=== PATIENT | male | born 1995 | race Caucasian/White ===

== ENCOUNTER 2021-03-20 17:28 | Emergency (ER) | payer OTHER, SELFPAY ==
[2021-03-20 18:04] VITALS: BP 139/94; PULSE 86; RESP 16; TEMP 36.7; O2SAT 97; BMI 27.3
--- NOTE | 2021-03-20 18:21 | XRR_ITS ---
PROCEDURE INFORMATION: Exam: XR Left Wrist Exam date and time: 03/20/2021 6:21 PM Age: 25 years old Clinical indication: Pain; Wrist; Left; Additional info: Trauma TECHNIQUE: Imaging protocol: XR Left wrist. Views: 3 or more views. COMPARISON: No relevant prior studies available. FINDINGS: Bones/joints: There is an longitudinal interarticular hairline fracture of the distal radius. The carpal bones appear well aligned. Soft tissues: Unremarkable XR/XR wrist LT min 3V* [id number] IMPRESSION: 1. Interarticular fracture distal radius 2. Otherwise negative examination
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
[2021-03-20 19:07] VITALS: PULSE 100
[2021-03-20 21:15] VITALS: RESP 16; TEMP 36.7; O2SAT 97
--- NOTE | 2021-03-21 10:26 | DCPLANNER ---
water resource manager had message to schedule a follow up appointment for patient with ortho for a nondisplaced fracture. water resource manager called the ortho clinic, spoke with Amy, gave clinic patients information. water resource manager was told that patients information would be printed and reviewed. Clinic will call patient with appointment information.
--- NOTE | 2021-03-22 11:05 | DCPLANNER ---
Patient has a follow up appointment scheduled for Friday, March 26, 2021 at 8:[address] Christopher at [facility]. Clinic will call patient with appointment information.
--- NOTE | 2021-05-09 07:40 | DCPLANNER ---
Patient had a follow up appointment scheduled for 03.26.[address] Christopher at [facility] - patient did attend appointment.
== END 2021-03-20 21:15 | disposition home or self-care (01) ==
PROVIDERS: Emergency Provider Nurse Practitioner Family
DX: S52.572A Other intraarticular fracture of lower end of left radius, initial encounter for closed fracture (principal); V86.55XA Driver of 3- or 4- wheeled all-terrain vehicle (ATV) injured in nontraffic accident, initial encounter
CPT/HCPCS: 29125; 73110; 99282

== ENCOUNTER 2021-03-26 14:07 | Outpatient (CLI) | payer OTHER, SELFPAY | END 2021-03-26 14:08 | disposition home or self-care (01) | LOC: SPT 14:07 | PROVIDERS: Visit Provider Orthopaedic Surgery | DX: Z46.89 Encounter for fitting and adjustment of other specified devices (principal); S52.502D Unspecified fracture of the lower end of left radius, subsequent encounter for closed fracture with routine healing; X58.XXXD Exposure to other specified factors, subsequent encounter | CPT/HCPCS: 97760; L3982 ==

== ENCOUNTER → 2021-04-02 07:58 | Outpatient (BNVA) | payer OTHER, SELFPAY | PROVIDERS: Visit Provider Orthopaedic Surgery | DX: S52.502A Unspecified fracture of the lower end of left radius, initial encounter for closed fracture (principal); X58.XXXA Exposure to other specified factors, initial encounter | CPT/HCPCS: 73110 ==

== ENCOUNTER → 2021-04-23 08:45 | Outpatient (BNVA) | payer OTHER, SELFPAY | PROVIDERS: Visit Provider Orthopaedic Surgery | DX: S52.502A Unspecified fracture of the lower end of left radius, initial encounter for closed fracture (principal); X58.XXXA Exposure to other specified factors, initial encounter | CPT/HCPCS: 73110 ==

== ENCOUNTER 2025-08-13 10:35 | Emergency (ER) | payer BC, SELFPAY ==
[2025-08-13 11:01] VITALS: BP 126/88; PULSE 71; RESP 16; TEMP 36.4; O2SAT 99; BMI 33.2
--- NOTE | 2025-08-13 11:10 | XRR_ITS ---
PROCEDURE INFORMATION: Exam: XR Abdomen Exam date and time: 08/13/2025 11:12 AM Age: 30 years old Clinical indication: Abdominal pain; Flank; Left; Additional info: L flank pain TECHNIQUE: Imaging protocol: Radiologic exam of the abdomen. Views: Frontal supine view of the abdomen. 1 View. COMPARISON: No relevant prior studies available. FINDINGS: Gastrointestinal tract: Normal. No bowel dilation. Bones/joints: Unremarkable. XR/XR KUB portable [id number] IMPRESSION: No acute findings.
--- NOTE | 2025-08-13 11:11 | ED_ITS ---
HPI - Male Genitourinary 2 General: Chief complaint: Urogenital-Male Stated complaint: L side and back pain, trouble urinating, n/v Time Seen by Provider: 08/13/25 11:04 Source: patient Mode of arrival: ambulatory Limitations: no limitations History of Present Illness: 30-year-old male states has been having left flank pain since morning. States it is a sharp pain radiates to his testicles with some nausea vomiting. Patient states his pain currently 10 out of 10 has had a history of kidney stones states this feels same. Denies any worse or improving factors. Associated symptoms: Reports nausea and vomiting Related Data Previous Rx's ?Medication ?Instructions ?Recorded hydrocodone 5 mg-acetaminophen 325 1 tab PO Q6H PRN pa in #14 tabs 08/13/25 mg tablet ondansetron 4 mg disintegrating 4 mg PO Q6H PRN nausea and 08/13/25 tablet vomiting #14 tabs Allergies Allergy/AdvReac Type Severity Reaction Status Date / Time No Known Allergies Allergy Verified 05/21/21 08:06 Review of Systems 2 GI: Reports: nausea and vomiting : Reports: flank pain PFSH ED 2 PFSH: Social History Alcohol intake: never Substance/Drug Use: never Physical Exam 2 Const: COMMON NORMALS: no acute distress, patient oriented x3 and healthy appearing HENMT: COMMON NORMALS: normocephalic and atraumatic HEAD & SCALP: n ormocephalic and atraumatic Eye: COMMON NORMALS: Equal, round and reactive pupils present PUPIL: Yes Equal, round and reactive pupils present Neck/C-Spine: COMMON NORMALS: full ROM and supple Chest: COMMONS NORMALS: normal inspection of the chest Resp: COMMON NORMALS: normal respiratory effort Cardio: COMMON NORMALS: regular rate RATE: regular rate GI: COMMON NORMALS: Normal to inspection, nondistended, normoactive bowel sounds present, Soft to palpation, non-tender and no masses PALPATION: Yes Soft to palpation Extremity: COMMON NORMALS: normal to inspection and full ROM Neuro: COMMON NORMALS: patient oriented x3, moves all extremities and no focal motor deficits Psych: COMMON NORMALS: mental status grossly normal, Normal thought process present and cooperative THOUGHT PROCESS: Normal thought process present Skin: COMMON NORMALS: no rashes or lesions noted and no wounds GENERAL SKIN EXAM: no rashes or lesions noted Course 2 Vital Signs: Vital signs: Vital Signs Temperature 97.6 F 08/13/25 11:01 Pulse Rate 71 08/13/25 11:01 Respiratory Rate 16 08/13/25 11:01 Blood Pressure 126/88 08/13/25 11:01 Pulse Oximetry 99 08/13/25 11:01 Oxygen Delivery Me thod Room Air 08/13/25 11:01 MDM - Male Medical Decision Making Patient presents for flank pain differential include appendicitis and UTI. Abdominal exam here is benign with no tenderness no signs of appendicitis urinalysis showed no signs of UTI. White count electrolytes were normal. Does have hematuria symptoms are consistent with a kidney stone. He said kidney stones in the past does not require CT scan at this time. KUB showed no large stones. His pain is resolved here with Toradol and morphine. Will discharge him with hydrocodone and Zofran and a urine strainer and he is to follow-up. He understands agrees to plan Lab Data 08/13/25 11:55 08/13/25 11:55 Radiology Impressions KUB X-Ray 08/13/25 11:10 IMPRESSION: No acute findings. Laboratory Results WBC 9.10 10^3/uL (3.29-11.43) 08/13/25 11:55 RBC 6.01 10^6/uL (3.85-5.65) H 08/13/25 11:55 Hgb 16.70 g/dL (11.27-16.99) 08/13/25 11:55 Hct 50.7 % (37-53) 08/13/25 11:55 MCV 84.4 fl (82-101) 08/13/25 11:55 MCH 27.8 pg (27-33) 08/13/25 11:55 MCHC 32.9 g/dL (30-55) 08/13/25 11:55 RDW 12.8 % (12.1-15.1) 08/13/25 11:55 Plt Count 416 10^3/cmm (157-399) H 08/13/25 11:55 MPV 9.3 fL (7.4-10.4) 08/13/25 11:55 Neut % (Auto) 65.9 % 08/13/25 11:55 Lymph % (Auto) 23.7 % 08/13/25 11:55 [place] % (Auto) 5.2 % 08/13/25 11:55 Eos % (Auto) 3.6 % 08/13/25 11:55 Baso % (Auto) 1.3 % 08/13/25 11:55 Neut # (Auto) 5.99 10^3/uL (1.8-7.7) 08/13/25 11:55 Lymph # (Auto) 2.2 10^3/uL (0.8-4.8) 08/13/25 11:55 [place] # (Auto) 0.5 10^3/uL (0.2-0.9) 08/13/25 11:55 Eos # (Auto) 0.3 10^3/uL (0.0-0.8) 08/13/25 11:55 Baso # (Auto) 0.1 10^3/uL (0.0-0.1) 08/13/25 11:55 Nucleated RBC % (auto) 0 % 08/13/25 11:55 Nucleated RBCs # 0.0 /100WBC 08/13/25 11:55 Sodium 139 mmol/L (136-145) 08/13/25 11:55 Potassium 4.0 mmol/L (3.5-5.1) 08/13/25 11:55 Chloride 102 mmol/L (98-107) 08/13/25 11:55 Carbon Dioxide 22 mmol/L (22-29) 08/13/25 11:55 Anion Gap 19.0 (5-19) 08/13/25 11:55 BUN 10 mg/dL (6-20) 08/13/25 11:55 Creatinine 1.1 mg/dL (0.7-1.2) 08/13/25 11:55 GFR Calculation 79.1 mL/min (90-130) L 08/13/25 11:55 Glucose 150 mg/dL (65-115) H 08/13/25 11:55 Calculated Osmolality 290 mOsm/kg (285-295) 08/13/25 11:55 Calcium 9.6 mg/dL (8.5-10.5) 08/13/25 11:55 Total Bilirubin 0.6 mg/dL (0.15-1.2) 08/13/25 11:55 AST 34 U/L (0-40) 08/13/25 11:55 Alkaline Phosphatase 103 U/L (40-130) 08/13/25 11:55 Total Protein 7.9 g/dL (6.6-8.7) 08/13/25 11:55 Albumin 4.6 g/dL (3.5-5.2) 08/13/25 11:55 Globulin 3.3 g/dL (1.3-4.6) 08/13/25 11:55 Lipase 35 U/L (13-60) 08/13/25 11:55 Urine Color Red (Yellow) A 08/13/25 11:14 Urine Appearance Cloudy (CLEAR) A 08/13/25 11:14 Urine pH 5.5 (5-7) 08/13/25 11:14 Ur Specific [place] 1.030 (1.005-1.030) 08/13/25 11:14 Urine Protein 2+ (Negative) A 08/13/25 11:14 Urine Glucose (UA) Negative (Normal) 08/13/25 11:14 Urine Ketones Negative (Negative) 08/13/25 11:14 Urine Blood 3+ (Negative) A 08/13/25 11:14 Urine Nitrate Negative (Negative) 08/13/25 11:14 Urine Bilirubin Negative (Negative) 08/13/25 11:14 Urine Urobilinogen 1.0 mg/dL (Negative) 08/13/25 11:14 Ur Leukocyte Esterase 1+ (Negative) A 08/13/25 11:14 Urine RBC >100 /hpf (0-2) H 08/13/25 11:14 Urine WBC 11-20 /hpf (0-5) H 08/13/25 11:14 Ur Squamous Epith Cells 0-5 /hpf (0-5) 08/13/25 11:14 Amorphous Sediment Not Reportable 08/13/25 11:14 Urine Bacteria None seen /hpf (NONE) 08/13/25 11:14 Hyaline Casts 0.81 /lpf 08/13/25 11:14 All radiology interpretation(s) finalized by discharge Discharge Plan Discharge Patient Disposition: Home Clinical Impression: Kidney stone Condition: Stable Prescriptions: New hydrocodone-acetaminophen 5-325 mg tablet 1 tab PO Q6H PRN (Reason: pain) Qty: 14 0RF ondansetron 4 mg tablet,disintegrating 4 mg PO Q6H PRN (Reason: nausea and vomiting) Qty: 14 0RF Discharge Orders: Discharge ED (Routine); Ordered 08/13/25 Ordered By: Precious Huddleston Discharge Diet: Advance as tolerated Discharge Activity: Resume usual activity Patient Instructions: Kidney Stones (ED), Opioid Safety Print Language: [place] Islander Coding Level of Care Code ED 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
[2025-08-13 11:17] LABS: Glucose Urine UA Negative (Normal); Nitrate Urine Negative (Negative); Specific Gravity, Urine 1.030 (1.005-1.030)
[2025-08-13 11:22] LABS: Add Urine Microscopic? YES
[2025-08-13] MEDS: HYDROmorphone 0.5 MG/0.5 ML INJ 1 MG IVP (11:32)
[2025-08-13] MEDS: ondansetron 2 mg/ML SDV 2 mL 4 MG IVP (11:32)
[2025-08-13 12:00] LABS: Hematocrit 50.7 % (37-53); Hemoglobin 16.70 g/dL (11.27-16.99); Mean Corpuscular HGB Conc 32.9 g/dL (30-55); Mean Corpuscular Hemoglobin 27.8 pg (27-33); Mean Corpuscular Volume 84.4 fl (82-101); Nucleated Red Blood Cells % 0 %; Platelet Count 416 10^3/cmm (157-399); Red Blood Count 6.01 10^6/uL (3.85-5.65); White Blood Count 9.10 10^3/uL (3.29-11.43)
[2025-08-13 12:20] LABS: Albumin Level 4.6 g/dL (3.5-5.2); Alkaline Phosphatase 103 U/L (40-130); Anion Gap 19.0 (5-19); Aspartate Amino Transferase 34 U/L (0-40); Blood Urea Nitrogen 10 mg/dL (6-20); Calcium 9.6 mg/dL (8.5-10.5); Carbon Dioxide 22 mmol/L (22-29); Chloride 102 mmol/L (98-107); Creatinine Clr Calc Pharmacy 116.6666; Globulin 3.3 g/dL (1.3-4.6); Glucose 150 mg/dL (65-115); Lipase 35 U/L (13-60); Osmolality Calculated 290 mOsm/kg (285-295); Potassium 4.0 mmol/L (3.5-5.1); Sodium 139 mmol/L (136-145); Total Protein 7.9 g/dL (6.6-8.7)
[2025-08-13 12:43] LABS: Alanine Aminotransferase 46 U/L (0-41)
[2025-08-13 12:45] VITALS: BP 115/72; PULSE 90; O2SAT 96
== END 2025-08-13 12:58 | disposition home or self-care (01) ==
PROVIDERS: Emergency Provider Emergency Medicine
DX: N20.0 Calculus of kidney (principal); Z87.442 Personal history of urinary calculi
CPT/HCPCS: 36415; 74018; 80053; 81001; 83690; 85025; 87086; 96374; 96375; 99284; J1171; J1885; J2405; J7030